=== PATIENT | male | born 2000 | race Caucasian/White ===

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

== ENCOUNTER 2018-04-13 02:22 | Emergency (ER) | payer BC ==
[~2018-04-13] VITALS: Ht 182.9 cm; Wt 78.0 kg
[~2018-04-13 02:22] MED LIST: IBUP100O28 PO
[2018-04-13 02:27] VITALS: Ht 182.9 cm; Wt 78.0 kg
[2018-04-13] MEDS ORDERED: IPRATROPIUM (NEB) 0.5 MG/2.5 ML AMP INH STA (02:32)
[2018-04-13] MEDS ORDERED: ALBUTEROL 0.5% (NEB) 2.5 MG/0.5 ML AMP INH STA (02:32)
[2018-04-13] MEDS ORDERED: METHYLPREDNISOLONE 125 MG INJ IM STA (02:32)
--- NOTE | 2018-04-13 02:57 | ERD ---
ER Documentation Chief Complaint Chief Complaint C/o short of breath HPI This is a 17-year-old male with a history of asthma who presents ED with with acute asthma exacerbation. Patient admits to shortness of breath, wheezing. Denies chest pain, cough, sputum production, fever, chills, nausea, vomiting, diarrhea, constipation and all other symptoms. No known drug allergies. Uses nebulized albuterol as well as albuterol inhaler . Patient has never been intubated and has never been admitted to hospital for asthma exacerbation. does not smoke. ROS All systems reviewed and are negative except as per history of present illness. Medications Home Meds Active Scripts Salmeterol Xinaf-Fluticasone* (Advair HFA*) 45/212 Aerosol Inhaler, 2 INH IH BID, #1 INHALER Prov:ROCAEL VERDE PA-C 04/13/18 Prednisone* (Prednisone*) 20 Mg Tab, 40 MG PO DAILY for 4 Days, TAB Prov:ROCAEL VERDE PA-C 04/13/18 Albuterol Sulfate* (Proair HFA*) 8.5 Gm Hfa.aer.ad, 2 PUFF INH Q4, #1 INHALER Prov:ROCAEL VERDE PA-C 04/13/18 Albuterol Sulfate* (Albuterol Sulfate* Neb) 0.083%-3 Ml Neb, 2.5 MG NEB Q4 PRN for SHORTNESS OF BREATH, #30 EA Prov:ROCAEL VERDE PA-C 04/13/18 Ibuprofen (Ibuprofen) 100 Mg/5 Ml Oral.susp, 20 ML PO Q6H PRN for PAIN AND OR ELEVATED TEMP, #4 OZ Prov:KATHERINE HALL 04/22/17 Allergies Allergies: Coded Allergies: No Known Allergy (Unverified , 04/21/17) PMhx/Soc Hx Respiratory Disorders: Yes (Asthma) Hx Alcohol Use: No Hx Substance Use: No Hx Tobacco Use: No FmHx Family History: No diabetes Physical Exam Vitals Vital Signs Date Temp Pulse Resp B/P (MAP) Pulse Ox O2 O2 Flow FiO2 Time Delivery Rate 04/13/18 87 22 97 21 02:48 04/13/18 98.2 81 22 133/80 99 Room Air 02:37 (97) 04/13/18 98.3 81 22 133/80 99 02:27 (97) Physical Exam Physical Exam Vitals signs: Reviewed by me. General: Well developed, well nourished, in no acute distress. Patient is awake and alert. Head: Normocephalic, atraumatic. Eyes: Normal conjunctiva, Pupils PERRLA, EOM intact grossly ENT: Pharynx is clear, Moist mucous membranes, external ears, nose and mouth normal Neck: Supple, no masses, lymphadenopathy or JVD Respiratory: expiratory wheezing heard bilaterally with no rhonchi, rales, no distres, no retractions, no labored breathing Neurologic: Alert and oriented, moving all extremities, normal speech, no focal weakness, no cerebellar signs. Normal mentation Skin: warm and dry, No rash Psych: Normal mood Results 24 hrs Current Medications Medications Dose Sig/Kevin Start Time Status Last (Trade) Ordered Route PRN Stop Time Admin Dose Reason Admin Albuterol 10 mg ONCE STAT 04/13/18 DC 04/13/18 (Proventil INH 02:32 04/13/18 02:44 0.5% (Neb)) 02:35 Ipratropium 1 mg ONCE STAT 04/13/18 DC 04/13/18 Tok INH 02:32 04/13/18 02:44 (Atrovent 02:35 0.02% (Neb)) 125 mg ONCE STAT 04/13/18 DC 04/13/18 Methylprednis IM 02:32 04/13/18 02:38 olone Sodium 02:35 Succinate (Solu-Medrol) Procedures/MDM ER COURSE: The patient was given breathing treatment and IM Solu-Medrol The medication was well tolerated and the patient reports improvement in symptoms. The patient was stable throughout ED course. I kept the patient and/or family informed of laboratory and diagnostic imaging results throughout the emergency room course. The patient was promptly evaluated and a treatment plan was devised based on H&P and other data. This plan was discussed with the patient who agreed and had no further questions or concerns prior to discharge. MEDICAL DECISION MAKIN-year-old male presents ED with acute asthma exacerbation. Physical examination was remarkable for wheezing. No retractions on physical examination. After the patient was given albuterol/ipratropium breathing treatment and IM Solu-Medrol continuous. Pt initial oxygen saturation at arrival in ED was 96, and after breathing treatment oxygen saturation has increased to 99. History and physical examination other data not consistent with emergent processes including status asthmaticus, pneumonia, pneumothorax, pleural effusion and other emergencies. There are no emergent life-threatening pathologies at time of discharge. Vitals are stable and patient is appropriate for outpatient management. Advised patient that he needs to follow-up with his primary care in the next 48 hours. Advised to return to ED with any worsening symptoms. DISPOSITION PLAN: We discussed follow up with the patient's primary care doctor within 24 to 48 hours. Patient counseled regarding my diagnostic impression and care plan. Prior to discharge all questions answered. Pt agrees with treatment plan and understands strict return precautions. Precautionary instructions provided including instructions to return to the ER if not improving or for any worsening or changing symptoms or concerns. SPECIALIST FOLLOW UP RECOMMENDED: None Patient has been advised to follow up with primary care in 1-2 days. Disclaimer: Inadvertent spelling and grammatical errors are likely due to EHR/dictation software use and do not reflect on the overall quality of patient care. Also, please note that the electronic time recorded on this note does not necessarily reflect the actual time of the patient encounter. Departure Diagnosis: Primary Impression: Asthma exacerbation Asthma severity: unspecified severity Asthma persistence: unspecified Qualified Codes: J45.901 - Unspecified asthma with (acute) exacerbation Condition: Stable Patient Instructions: Asthma, Acute (Adult), Controlling Asthma Triggers: Irritants, Controlling Asthma Triggers: Other, Understanding Asthma Triggers, Your Asthma Zone Action Plan (Adult) Referrals: [facility] Additional Instructions: Patient advised to return to the ED immediately for new or worsening symptoms. Patient advised to follow up with primary care provider in the next 24-48 hours. Patient verbalized understanding and agrees with treatment plan and course of action. If patient has no primary care they may follow up with one of the community clinics listed on the following page or one of the options listed below [facility] + [facility] [address] [place] [address] or [facility] [address] [place] [address] [address] ROCAEL VERDE PA-C Apr 13, 2018 02:57
[2018-04-13] MEDS ORDERED: FLUT12HF IH (04:05)
[2018-04-13] MEDS ORDERED: ALBU8.5H8 INH (04:05)
[2018-04-13] MEDS ORDERED: PRED20TA PO (04:05)
[2018-04-13] MEDS ORDERED: ALBU2.5V3 NEB (04:05)
[2018-04-13 04:20] VITALS: BP 126/74; PULSE 83; RESP 22
== END 2018-04-13 04:23 | disposition home or self-care (01) ==
LOC: FTE 02:22
DX: J45.901 Unspecified asthma with (acute) exacerbation (principal)
CPT/HCPCS: 94644; 96372; 99284; J2930; Z7610

== ENCOUNTER 2018-04-20 06:46 | Emergency (ER) | payer BC ==
[~2018-04-20] VITALS: Ht 175.3 cm; Wt 85.4 kg
[~2018-04-20 06:46] MED LIST changes: +ALBU2.5V3 NEB; +ALBU8.5H8 INH; +FLUT12HF IH; +PRED20TA PO
[2018-04-20 06:50] VITALS: BP 128/66; PULSE 68; RESP 20; Ht 175.3 cm; Wt 85.4 kg
[2018-04-20] MEDS ORDERED: KETOROLAC 30 MG INJ IM STA (07:12)
[2018-04-20] MEDS ORDERED: IBUP-1542 PO (07:13)
--- NOTE | 2018-04-20 07:41 | ERD ---
ER Documentation Chief Complaint Chief Complaint Patient complains of left side pain since this HPI Patient is a 17-year-old male with asthma who presents with flank pain. The patient says that he has right-sided flank pain that started on Friday. He feels like his right side is swollen. He has had no trauma. The pain comes and goes. He has had no treatment as of yet. He has no fevers. He has no urinary symptoms. Upon review of old medical records this is the patient's third visit to the ER since 2018. His primary doctor is Dr. Rader. ROS All systems reviewed and are negative except as per history of present illness. Medications Home Meds Active Scripts Ibuprofen* (Motrin*) 600 Mg Tab, 600 MG PO Q6H PRN for PAIN AND OR ELEVATED TEMP, #30 TAB Prov:XU PAN MD 04/20/18 Salmeterol Xinaf-Fluticasone* (Advair HFA*) 45/212 Aerosol Inhaler, 2 INH IH BID, #1 INHALER Prov:ROCAEL VERDE PA-C 04/13/18 Prednisone* (Prednisone*) 20 Mg Tab, 40 MG PO DAILY for 4 Days, TAB Prov:ROCAEL VERDE PA-C 04/13/18 Albuterol Sulfate* (Proair HFA*) 8.5 Gm Hfa.aer.ad, 2 PUFF INH Q4, #1 INHALER Prov:ROCAEL VERDE PA-C 04/13/18 Albuterol Sulfate* (Albuterol Sulfate* Neb) 0.083%-3 Ml Neb, 2.5 MG NEB Q4 PRN for SHORTNESS OF BREATH, #30 EA Prov:ROCAEL VERDE PA-C 04/13/18 Ibuprofen (Ibuprofen) 100 Mg/5 Ml Oral.susp, 20 ML PO Q6H PRN for PAIN AND OR ELEVATED TEMP, #4 OZ Prov:KATHERINE HALL 04/22/17 Allergies Allergies: Coded Allergies: No Known Allergy (Unverified , 04/21/17) PMhx/Soc History of Surgery: Yes (left shoulder sx) Hx Respiratory Disorders: Yes (Asthma) Hx Alcohol Use: No Hx Substance Use: No Hx Tobacco Use: No FmHx Family History: diabetes Physical Exam Vitals Vital Signs Date Temp Pulse Resp B/P (MAP) Pulse Ox O2 O2 Flow FiO2 Time Delivery Rate 04/20/18 98.4 68 20 128/66 96 06:50 (86) Physical Exam Const: No acute distress Head: Atraumatic Eyes: Normal Conjunctiva ENT: Normal External Ears, Nose and Mouth. Neck: Full range of motion. No meningismus. Resp: Clear to auscultation bilaterally Cardio: Regular rate and rhythm, no murmurs Abd: Soft, non tender, non distended. Normal bowel sounds, no sign of rash or swelling to the right flank Skin: No petechiae or rashes Back: No midline or flank tenderness Ext: No cyanosis, or edema Neur: Awake and alert Psych: Normal Mood and Affect Results 24 hrs Current Medications Medications Dose Sig/Kevin Start Time Status Last (Trade) Ordered Route PRN Stop Time Admin Dose Reason Admin Ketorolac 30 mg ONCE STAT 04/20/18 DC 04/20/18 Tromethamine IM 07:12 07:18 (Toradol) 04/20/18 07:14 Procedures/MDM Patient is a 17-year-old male presents with right-sided flank pain. He is well- appearing with stable vital signs here in the emergency department. His exam is benign without signs of rash or swelling. The patient will be discharged after a dose of Toradol is given for pain. The patient can use ibuprofen for symptom medic relief. This may be musculoskeletal pain. I do not believe the patient requires further workup or admission to the hospital at this time. The patient will need to follow-up closely with his primary doctor within 24-48 hours. He can return sooner for any worsening symptoms. Departure Diagnosis: Primary Impression: Flank pain Condition: Fair Patient Instructions: Flank Pain, Uncertain Cause Referrals: Dr. Rader Additional Instructions: Call your primary care doctor TOMORROW for an appointment during the next 1-2 days.See the doctor sooner or return here if your condition worsens before your appointment time. XU PAN MD Apr 20, 2018 07:41
== END 2018-04-20 07:43 | disposition home or self-care (01) ==
LOC: FTE 06:46
DX: R10.9 Unspecified abdominal pain (principal); J45.909 Unspecified asthma, uncomplicated
CPT/HCPCS: 96372; 99284; J1885